=== PATIENT | male | born 2000 | race Caucasian/White ===

== ENCOUNTER 2023-08-04 20:24 | Observation (INO) ==
[2023-08-04 20:55] LABS: ABS Eosinophils 0.1 10^3/uL (0.0-0.5); ABS Lymphocytes 3.5 10^3/uL (1.0-4.8); ABS Monocytes 0.5 10^3/uL (0.0-1.1); ABS Neutrophils 3.6 10^3/uL (1.5-7.6); ABS Nucleated RBC 0.02 10^3/ul; Eosinophil % 1.6 %; Hematocrit 42.1 % (38-53); Hemoglobin 14.3 g/dL (13.2-16.3); Lymphocyte % 45.4 %; Mean Corpuscular Hgb Conc 34.1 g/dL (31-36); Mean Platelet Volume 9.6 fL (7.5-11.2); Nucleated Red Blood Cells % 0.2 %/100WBC (0.0-0.8); Platelet Count 217 10^3/uL (150-450); Red Blood Count 4.78 10^6/uL (4.06-5.63); Red Cell Distribution Width 13.7 % (12-17); White Blood Count 7.8 10^3/uL (3.6-10.2)
[2023-08-04 21:07] LABS: INR 1.2 (0.83-1.13)
[2023-08-04 21:27] LABS: Albumin 4.6 g/dL (3.2-5.2); Calcium 9.3 mg/dL (8.6-10.3); Creatinine, Serum 1.13 mg/dL (0.67-1.17); Globulin 2.3 g/dL (2-4); Magnesium 1.6 mg/dL (1.9-2.7); Potassium 3.9 mmol/L (3.5-5.0); Total Bilirubin 0.6 mg/dL (0.2-1.0); Total Protein 6.9 g/dL (6.4-8.9); eGFR CKD-EPI 94.8 (>60)
[2023-08-04] MEDS: VERAPAMIL 2.5 MG/ML 2 ML VIAL ** 5 mg/2 ml IV SLOW PU ONE (21:41)
[2023-08-04 21:42] LABS: TSH Ultra Thyroid Stim Horm 1.5 mcIU/mL (0.34-5.60)
[2023-08-04 22:15] LABS: High Sensitivity Troponin 1 Hr 6 pg/mL (<20)
[2023-08-04] MEDS: Adenosine 3 MG/ML 2 ml VIAL (6 mg) IV PUSH ONE ×2 (23:00→23:01)
[2023-08-04] MEDS: Magnesium Sulfate 2 gm BAG 2 GM/50 ML BAG IVPB ONE (23:27)
[2023-08-04] MEDS: Propofol 10 MG/ML 20 ML BTL IV PUSH ONE (23:57)
[2023-08-05] MEDS: Potassium Chlor 20 meq TAB.ER PO ONE (00:27)
[2023-08-05 01:59] LABS: Urine Benzodiazepine Screen None Detected (None Detect); Urine Cannabinoids Screen None Detected (None Detect); Urine Opiates Screen None Detected (None Detect)
[2023-08-05 06:21] LABS: ABS Basophils 0.1 10^3/uL (0.0-0.1); ABS Eosinophils 0.1 10^3/uL (0.0-0.5); ABS Lymphocytes 3.4 10^3/uL (1.0-4.8); ABS Monocytes 0.4 10^3/uL (0.0-1.1); Eosinophil % 1.1 %; Hematocrit 39.3 % (38-53); Hemoglobin 13.3 g/dL (13.2-16.3); Lymphocyte % 48.5 %; Mean Corpuscular Volume 88.3 fL (80-97); Mean Platelet Volume 9.3 fL (7.5-11.2); Platelet Count 197 10^3/uL (150-450); Red Blood Count 4.45 10^6/uL (4.06-5.63); Red Cell Distribution Width 13.6 % (12-17)
[2023-08-05 07:45] LABS: Calcium 8.4 mg/dL (8.6-10.3); Creatinine, Serum 0.83 mg/dL (0.67-1.17); eGFR CKD-EPI 127.7 (>60)
[2023-08-05 18:21] VITALS: BP 106/61
== END 2023-08-05 18:15 | disposition home or self-care (01) ==
LOC: ED 20:24 → EDHOLD 20:24 → ICU 08-05 02:21
PROVIDERS: ADMIT Student in an Organized Health Care Education/Training Program; ATTEND Student in an Organized Health Care Education/Training Program